=== PATIENT | male | born 1985 | race Hispanic/Latino ===

== ENCOUNTER 2020-08-02 06:57 | Emergency (ER) | payer OTHER ==
--- NOTE | 2020-08-02 07:12 | Emergency Department Report ---
ED General Adult HPI - General Chief complaint: Medical Clearance Stated complaint: ANXIETY/HIGH HEARTRATE PUI?: No Time Seen by Provider: 08/02/20 07:11 Source: patient, EMS (Verbal report received from emergency medical services. EMS documentation not available at time of chart dictation ), RN notes reviewed, old records reviewed Mode of arrival: Stretcher Limitations: Other (Patient somewhat hyper latter day) - History of Present Illness Initial comments: The patient was evaluated in the emergency department for symptoms described in the history of present illness. He/she was evaluated in the context of the global COVID-19 pandemic, which necessitated consideration that the patient might be at risk for infection with the virus that causes COVID-19. Institutional protocols and algorithms that pertain to the evaluation of patients at risk for COVID-19 are in a state of rapid change based on information released by regulatory bodies including the CDC and federal and state organizations. These policies and algorithms were followed during the patient's care in the emergency department. Please note that these policies, procedures and recommendations changed on a rapid basis. The patient is a 34-year-old gentleman. He is not known to myself previously. He was reportedly diagnosed with Covid in [place] in the beginning of the month. He also has a history of infantile pneumothorax on his right-hand side. The patient is currently at [facility], on a voluntary basis. He was originally transferred there on a 1013 because of hyper latter day behavior, bizarre behavior, and mutism. His psychiatrist of record, Dr. Alfaro, has placed the patient on a voluntary basis. The patient is sent to the emergency room for asymptomatic tachycardia. As per verbal report from emergency medical services, patient was found to have heart rate at 170 bpm approximately 12:00 AM today. It is not known why referral to the emergency room took a prolonged period of time. EMS states the patient had heart rate in the 1 teens/120s. The patient himself states "everything is explained on my art work." The patient states he has right-sided chest tightness. He denies headache, neck pain, left-sided chest pain, vomiting, shortness of breath, leg pain, leg swelling, homicidality, suicidality, he denies muscle aches, loss of taste and loss of smell. The patient endorses that he is not experiencing any hallucinations. The patient states "Rustam is my Savior, everything comes through him." The patient also states "if you look at my art work and drawings, it will explain everything." To the best of patient's knowledge, no personal or family history of DVT, pulmonary embolism, or coronary artery disease. He states his tachycardia is mostly resolved, he feels like he is very anxious, and he does not have right-sided chest tightness at this time. -: Sudden Location: chest Radiation: non-radiation Consistency: now resolved Improves with: none Worsens with: none Associated Symptoms: denies other symptoms - Related Data Allergies Allergy/AdvReac Type Severity Reaction Status Date / Time codeine Allergy Rash Verified 08/02/20 07:35 ED Review of Systems ROS: Stated complaint: ANXIETY/HIGH HEARTRATE Other details as noted in HPI Constitutional: denies: fever Eyes: denies: eye discharge Respiratory: denies: cough Cardiovascular: palpitations Gastrointestinal: denies: abdominal pain Genitourinary: denies: dysuria Musculoskeletal: denies: back pain Neurological: as per HPI. denies: weakness Psychiatric: anxiety. denies: auditory hallucinations, visual hallucinations, homicidal thoughts, suicidal thoughts ED Physical Exam - General Limitations: Other (Patient somewhat anxious, minimally disorganized) General appearance: alert, anxious - Head Head exam: Present: atraumatic, normocephalic - Eye Eye exam: Present: normal appearance, EOMI. Absent: nystagmus - ENT ENT exam: Present: normal exam, normal orophraynx, mucous membranes moist, normal external ear exam - Neck Neck exam: Present: normal inspection, full ROM. Absent: tenderness, m eningismus - Respiratory Respiratory exam: Present: normal lung sounds bilaterally, other (There is a right-sided scar, appears chronic, consistent with prior history of pneumothorax). Absent: respiratory distress, wheezes, rales, rhonchi, stridor - Cardiovascular Cardiovascular Exam: Present: normal rhythm, tachycardia, normal heart sounds. Absent: bradycardia, irregular rhythm, systolic murmur, diastolic murmur, rubs, gallop - GI/Abdominal GI/Abdominal exam: Present: soft, normal bowel sounds. Absent: distended, tenderness, guarding, rebound, rigid, pulsatile mass - Rectal Rectal exam: Present: deferred - Extremities Exam Extremities exam: Present: normal inspection, full ROM, other (2+ pulses noted in the bilateral upper and lower extremities. There is no palpable cord. negative Homans sign. Muscular compartments are soft. The pelvis is stable.). Absent: pedal edema, calf tenderness - Back Exam Back exam: Present: normal inspection. Absent: tenderness, CVA tenderness (R), CVA tenderness (L), paraspinal tenderness, vertebral tenderness - Neurological Exam Neurological exam: Present: alert, oriented X3, other (No facial droop. Tongue midline. Extraocular movements intact bilaterally. Facial sensation intact to light touch in V1, V2, V3 distribution bilaterally. 5 and a 5 strength in 4 extremities. Sensation intact to light touch in 4 extremities.). Absent: motor sensory deficit - Psychiatric Psychiatric exam: Present: anxious. Absent: homicidal ideation, suicidal ideation - Skin Skin exam: Present: warm, dry, intact, normal color. Absent: rash ED Course Vital Signs 08/02/20 08/02/20 08/02/20 07:20 10:02 10:07 Temperature 97.9 F 98.6 F Pulse Rate 111 H 105 H Respiratory 17 19 Rate Blood Pressure 132/81 Blood Pressure 125/68 [Left] O2 Sat by Pulse 97 98 Oximetry O2 Sat by Pulse 98 Oximetry [ Digit-Finger] 08/02/20 10:55 Temperature Pulse Rate 100 H Respiratory 14 Rate Blood Pressure Blood Pressure 142/81 [Left] O2 Sat by Pulse 100 Oximetry O2 Sat by Pulse Oximetry [ Digit-Finger] - Reevaluation(s) Reevaluation #1: 08/02/20 07:30 Differential diagnosis, including the not limited to: Anxiety, pneumothorax, pneumonia, thyroid derangement, pulmonary embolism Assessment and plan: 34-year-old gentleman, who is hyper latter day, but alert and oriented x3, and clinically sober, who was taken off of his 1013 by his psychiatry team recently, who has somewhat of a bizarre affect and anxiety, but is pleasant, calm and cooperative, and does not endorse desire to harm herself or harm other people. He recently had COVID-19 at the beginning of the month. Given nonspecific description of right-sided chest discomfort and tachycardia, we will send D-dimer, in addition to appropriate laboratory studies to risk for pulmonary embolism. We will start IV fluids, and give Ativan. Medications include metoprolol, Risperdal, clonidine, haloperidol, Benadryl. They also include trazodone. We will reassess after initial data points have resulted. Assuming negative troponin which we anticipate, patient at low risk for major adverse cardiac event as per heart score Reevaluation #2: 08/02/20 08:38 Laboratory studies fairly unremarkable at this time, D-dimer elevated. Given history of Covid, tachycardia, right-sided chest discomfort, CT scan of the chest will be obtained to exclude pulmonary embolism. Psychiatry liaison who is reached out to [facility], who have requested a repeat psychiatric evaluation for potential intake. Therefore, psychiatric consultation is requested, additional laboratory studies, such as urinalysis, have been ordered, as per typical requirements of the psychiatric team. 08/02/20 10:[address] scan of the chest shows no evidence of large significant pulmonary embolism. We appreciate that the patient's CT angiogram has a suboptimal contrast bolus. However, his tachycardia is much improved, he is not hypoxic, and he is not tachypneic. Therefore, I think it is very unlikely that the patient has a subsubsegmental, or subsegmental pulmonary embolism. At this point in time, patient does not appear to have an immediate medical contraindication to psychiatric admission, evaluation, consultation and placement. - Pulse Oximetry Interpretation Digit-Finger Initial Pulse Oximetry Readin O2 Sat by Pulse Oximetry: 98 Actions Taken: none ED Medical Decision Making - Lab Data Result diagrams: 08/02/20 07:46 08/02/20 07:46 Vital Signs 08/02/20 08/02/20 07:20 07:38 Temperature 97.9 F Pulse Rate 111 H Respiratory 17 Rate Blood Pressure 132/81 O2 Sat by Pulse 97 Oximetry O2 Sat by Pulse 98 Oximetry [ Digit-Finger] Lab Results 08/02/20 08/02/20 08/02/20 Range/Units 07:46 07:46 07:46 WBC 7.9 (4.5-11.0) K/mm3 RBC 4.60 (3.65-5.03) M/mm3 Hgb 14.7 (11.8-15.2) gm/dl Hct 41.4 (35.5-45.6) % MCV 90 (84-94) fl MCH 32 (28-32) pg MCHC 36 H (32-34) % RDW 12.8 L (13.2-15.2) % Plt Count 213 (140-440) K/mm3 PT 13.9 (12.2-14.9) Sec. INR 1.08 (0.87-1.13) D-Dimer 297.02 H (0-234) ng/mlDDU Sodium (137-145) mmol/L Potassium (3.6-5.0) mmol/L Chloride (98-107) mmol/L Carbon Dioxide (22-30) mmol/L Anion Gap mmol/L BUN (9-20) mg/dL Creatinine (0.8-1.3) mg/dL Estimated GFR ml/min BUN/Creatinine Ratio % Glucose (75-100) mg/dL Calcium (8.4-10.2) mg/dL Magnesium (1.7-2.3) mg/dL Total Bilirubin (0.1-1.2) mg/dL AST (5-40) units/L ALT (7-56) units/L Alkaline Phosphatase (35-129) units/L Total Creatine Kinase (55-170) units/L Troponin T < 0.010 (0.00-0.029) ng/mL Total Protein (6.3-8.2) g/dL Albumin (3.9-5) g/dL Albumin/Globulin Ratio % Salicylates (2.8-20.0) mg/dL Acetaminophen (10.0-30.0) ug/mL Plasma/Serum Alcohol (0-0.07) % 08/02/20 08/02/20 08/02/20 Range/Units 07:46 07:46 07:46 WBC (4.5-11.0) K/mm3 RBC (3.65-5.03) M/mm3 Hgb (11.8-15.2) gm/dl Hct (35.5-45.6) % MCV (84-94) fl MCH (28-32) pg MCHC (32-34) % RDW (13.2-15.2) % Plt Count (140-440) K/mm3 PT (12.2-14.9) Sec. INR (0.87-1.13) D-Dimer (0-234) ng/mlDDU Sodium 138 (137-145) mmol/L Potassium 3.6 (3.6-5.0) mmol/L Chloride 107.7 H (98-107) mmol/L Carbon Dioxide 23 (22-30) mmol/L Anion Gap 11 mmol/L BUN 13 (9-20) mg/dL Creatinine 0.7 L (0.8-1.3) mg/dL Estimated GFR > 60 ml/min BUN/Creatinine Ratio 19 % Glucose 101 H (75-100) mg/dL Calcium 8.5 (8.4-10.2) mg/dL Magnesium 2.00 (1.7-2.3) mg/dL Total Bilirubin 0.70 (0.1-1.2) mg/dL AST 16 (5-40) units/L ALT 27 (7-56) units/L Alkaline Phosphatase 61 (35-129) units/L Total Creatine Kinase 166 (55-170) units/L Troponin T (0.00-0.029) ng/mL Total Protein 6.9 (6.3-8.2) g/dL Albumin 4.4 (3.9-5) g/dL Albumin/Globulin Ratio 1.8 % Salicylates < 0.3 L (2.8-20.0) mg/dL Acetaminophen 5.0 L (10.0-30.0) ug/mL Plasma/Serum Alcohol (0-0.07) % 08/02/20 Range/Units 07:46 WBC (4.5-11.0) K/mm3 RBC (3.65-5.03) M/mm3 Hgb (11.8-15.2) gm/dl Hct (35.5-45.6) % MCV (84-94) fl MCH (28-32) pg MCHC (32-34) % RDW (13.2-15.2) % Plt Count (140-440) K/mm3 PT (12.2-14.9) Sec. INR (0.87-1.13) D-Dimer (0-234) ng/mlDDU Sodium (137-145) mmol/L Potassium (3.6-5.0) mmol/L Chloride (98-107) mmol/L Carbon Dioxide (22-30) mmol/L Anion Gap mmol/L BUN (9-20) mg/dL Creatinine (0.8-1.3) mg/dL Estimated GFR ml/min BUN/Creatinine Ratio % Glucose (75-100) mg/dL Calcium (8.4-10.2) mg/dL Magnesium (1.7-2.3) mg/dL Total Bilirubin (0.1-1.2) mg/dL AST (5-40) units/L ALT (7-56) units/L Alkaline Phosphatase (35-129) units/L Total Creatine Kinase (55-170) units/L Troponin T (0.00-0.029) ng/mL Total Protein (6.3-8.2) g/dL Albumin (3.9-5) g/dL Albumin/Globulin Ratio % Salicylates (2.8-20.0) mg/dL Acetaminophen (10.0-30.0) ug/mL Plasma/Serum Alcohol < 0.01 (0-0.07) % - EKG Data -: EKG Interpreted by Me EKG shows normal: sinus rhythm Rate: tachycardia - EKG Data When compared to previous EKG there are: previous EKG unavailable 08/02/20 07:31 Sinus rhythm, tachycardia rate 109 bpm, normal axis, QTC 468 ms, poor R wave progression, incomplete right bundle branch block. Not a STEMI - Radiology Data Radiology results: pending, report reviewed, image reviewed X-ray of the chest is negative for acute finding Critical care attestation.: If time is entered above; I have spent that time in minutes in the direct care of this critically ill patient, excluding procedure time. ED Disposition Clinical Impression: Right-sided chest pain, History of COVID-19, Medical clearance for psychiatric admission, Bizarre thoughts Disposition: [id number]/TX-65 PSY HOSP/PSY UNIT Is pt being admited?: No Does the pt Need Aspirin: No Condition: Good Instructions: Chest Pain (ED) Additional Instructions: Do not take metformin medication for the next 2 days. Recommend follow-up with a primary medical doctor or burlesque dancer for complaint of chest tightness and tachycardia within the next 3 days. At this point in time, patient does not appear to have an immediate medical contraindication to discharge back to his psychiatric facility. Recommend repeat psychiatric evaluation within the next 2 days for bizarre behavior and thought processes. Please return to the emergency room right away with new pain, worsening pain, migration of pain, projectile vomiting, change in mental status, confusion, mee bility to tolerate liquid feeds, new, worsened or different symptoms not present on the initial emergency room evaluation. Referrals: [facility] [Provider Group] - 3-5 Days Heart Score - HEART Score History: Slightly suspicious EKG: Non-specific Age: < 45 Risk factors: No known risk factors Troponin: < normal limit HEART Score: 1 - Critical Actions Critical Actions: 0-3 pts:0.9-1.7%risk of adverse cardiac event.Candidate for discharge
[2020-08-02] MEDS ORDERED: SODIUM CHLORIDE 0.9% 1000 ML 1,000 ML IV ONE (07:23)
[2020-08-02] MEDS ORDERED: LORazepam 2 MG/ML VIAL IV STA (07:23)
[2020-08-02 08:05] LABS: Hematocrit 41.4 % (35.5-45.6); Hemoglobin 14.7 gm/dl (11.8-15.2); Mean Corpuscular HGB Conc 36 % (32-34); Mean Corpuscular Volume 90 fl (84-94); Platelet Count 213 K/mm3 (140-440); Red Cell Distribution Width 12.8 % (13.2-15.2)
[2020-08-02 08:16] LABS: INR 1.08 (0.87-1.13)
--- NOTE | 2020-08-02 08:19 | XRay Report ---
XR chest 1V ap INDICATION / CLINICAL INFORMATION: tachycardia, right sided cp. COMPARISON: None available. FINDINGS: SUPPORT DEVICES: None. HEART /PULMONARY VASCULATURE: No significant abnormality. LUNGS / PLEURA: No significant pulmonary or pleural abnormality. No pneumothorax. ADDITIONAL FINDINGS: No significant additional findings. IMPRESSION: 1. No acute findings. Signer Name: Isrrael Jones MD Signed: 08/02/2020 8:15 AM Workstation Name: [id number]
--- NOTE | 2020-08-02 08:23 | Consultation ---
History of Present Illness - Reason for Consult Consult date: 08/02/20 Reason for consult: MHE Requesting physician: PIERRE HEBERT - History of Present Psychiatric Illness Per ED Provider: The patient is a 34-year-old gentleman. He is not known to myself previously. He was reportedly diagnosed with Covid in [place] in the beginning of the month. He also has a history of infantile pneumothorax on his right-hand side. The patient is currently at [facility], on a voluntary basis. He was originally transferred there on a 1013 because of hyper worship behavior, bizarre behavior, and mutism. His psychiatrist of record, Dr. Alfaro, has placed the patient on a voluntary basis. The patient is sent to the emergency room for asymptomatic tachycardia. As per verbal report from emergency medical services, patient was found to have heart rate at 170 bpm approximately 12:00 AM today. It is not known why referral to the emergency room took a prolonged period of time. EMS states the patient had heart rate in the 1 teens/120s. The patient himself states "everything is explained on my art work." The patient states he has right-sided chest tightness. He denies headache, neck pain, left-sided chest pain, vomiting, shortness of breath, leg pain, leg swelling, homicidality, suicidality, he denies muscle aches, loss of taste and loss of smell. The patient endorses that he is not experiencing any hallucinations. The patient states "Rustam is my Savior, everything comes through him." The patient also states "if you look at my art work and drawings, it will explain everything." PSYCH HPI Patient is a 34 year old , employed male with past psychiatric history of unspecified psychiatric disorder who presents to the ED from another psychiatric facility for acute medical management and recommending re-evaluation to determine continuous psych needs. Patient states he has been experience more exposure to nondenominational and jennifer has been talking to him. Patient states he believes a new light is shinning on him and other people dont understand that. He denies hallucinations, stating because he is on medications now he does not hear any and then proceed to showing drawings he had made that depicted a lost soul. PAST PSYCHIATRIC HISTORY Diagnoses: n/a Suicide attempts or Self-harm behavior: none Prior psychiatric hospitalizations: yes Substance Abuse history: none reported Previous psychiatric medications tried: yes but unknown Outpatient treatment: none reported PAST MEDICAL HISTORY: none Family Psychiatric History: None reported or documented SOCIAL HISTORY Marital Status: Living Arrangements: with Employment Status: employed Access to guns/weapons: none reported [place] [employer] [place] of Abuse: none Legal History: none REVIEW OF SYSTEMS Constitutional: Negative for weight loss ENT: Negative for stridor Respiratory: Negative for cough or hemoptysis All other systems reviewed and are negative MENTAL STATUS EXAMINATION General Appearance and Behavior: Age appropriate, poor/fair/good hygiene, wearing appropriate clothes, lying in bed, good/eye contact Cooperation: Participating/engaged, Psychomotor Behavior: unremarkable and within normal limits Mood: Good, Affect and affective range: congruent with mood Thought Process: illogical Loose associations Thought Content: Obsessions, Speech: Normal volume, Regular rate and rhythm, Intellectual Functioning: Average Suicidal Ideation: Denies SI Homicidal Ideation: Denies HI Impulse Control: Impaired Insight and Judgment: Normal insight and judgment Memory: Normal, d Attention: Normal, Orientation: Alert, oriented, Assessment and Plan - Psychiatric problem (1) Bipolar 1 disorder with moderate damon Status: Acute F31.12 Treatment Plan MEDICATIONS: Risks, benefits and alternatives of medications discussed with the patient, questions answered and consent obtained from patient. PSYCHOTHERAPY: Supportive psychotherapy provided MEDICAL: Per primary team DELIRIUM PRECAUTIONS: Please re-orient patient frequently, keep lights on during the day, and minimize benzodiazepines and opiates as these medications could worsen patient's confusion. 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 Case discussed with Dr. Sosa who agrees with current disposition LEGAL STATUS: 1013 FOLLOW-UP: Will follow Thank you for the consult. Please contact with any questions and/or concerns. Medications and Allergies Allergies Allergy/AdvReac Type Severity Reaction Status Date / Time codeine Allergy Rash Verified 08/02/20 07:35 Active Meds: Active Medications Sodium Chloride (Nacl 0.9% 1000 Ml) 1,000 mls @ 999 mls/hr IV BOLUS ONE Stop: 08/02/20 08:23 Last Admin: 08/02/20 07:35 Dose: 999 mls/hr Documented by: Mental Status Exam - Vital signs Last Vital Signs Temp 97.9 F 08/02/20 07:20 Pulse 111 H 08/02/20 07:20 Resp 17 08/02/20 07:20 BP 132/81 08/02/20 07:20 Pulse Ox 98 08/02/20 07:38 Results Result Diagrams: 08/02/20 07:46 08/02/20 07:46 Abnormal lab results 08/02/20 08/02/20 Range/Units 07:46 07:46 MCHC 36 H (32-34) % RDW 12.8 L (13.2-15.2) % D-Dimer 297.02 H (0-234) ng/mlDDU All other labs normal. Assessment and Plan - Psychiatric problem (1) Bipolar 1 disorder with moderate damon Status: Acute
[2020-08-02 08:32] LABS: Alanine Aminotransferase 27 units/L (7-56); Albumin 4.4 g/dL (3.9-5); Blood Urea Nitrogen 13 mg/dL (9-20); Calcium 8.5 mg/dL (8.4-10.2); Hemolysis Index 5
[2020-08-02 08:37] LABS: BUN/Creatinine Ratio 19
--- NOTE | 2020-08-02 09:22 | Cat Scan Report ---
CT angio chest INDICATION / CLINICAL INFORMATION: cp, + d dimer, tachycardia. TECHNIQUE: Axial CT images were obtained after injection of IV contrast using CTA protocol. 3 plane MIP / 3D rec onstructions were produced. All CT scans at this location are performed using CT dose reduction for A DOMINGUEZ by means of automated exposure control. COMPARISON: None available. FINDINGS: Following the administration of intravenous contrast, a suboptimal bolus was obtained. No definite fi lling defects are seen in the main pulmonary arteries or their larger branches. No significant parenc hymal abnormality is seen in the lungs. No enlarged mediastinal or hilar lymph nodes are identified. Mild thoracolumbar scoliosis is present. IMPRESSION: 1. Suboptimal bolus without definite evidence of pulmonary embolus 2. No acute findings 3. Mild thoracolumbar scoliosis Signer Name: Luther Prieto MD FACR Signed: 08/02/2020 9:18 AM Workstation Name: [id number]
[2020-08-02] MEDS ORDERED: METOPROLOL TARTRATE 50 MG TAB PO ONE (10:07)
[2020-08-02 10:51] LABS: Bilirubin,Urine NEG (Negative); Blood,Urine NEG (Negative); Color,Urine Yellow (Yellow); Mucus,Urine FEW /HPF; Protein,Urine <15 mg/dL mg/dL (Negative); RBC,Urine < 1.0 /HPF (0.0-6.0); WBC,Urine < 1.0 /HPF (0.0-6.0)
[2020-08-02 11:06] LABS: Amphetamine Screen,Urine Negative; Benzodiazepines Screen,Urine Negative; Cannabinoid Screen,Urine Negative; Cocaine Screen,Urine Negative; Methadone Screen,Urine Negative; Opiate Screen,Urine Negative
[2020-08-02 13:22] VITALS: BP 145/80
== END 2020-08-02 13:22 ==
LOC: ED 06:57
DX: R07.89 Other chest pain (principal); R46.1 Bizarre personal appearance; Z86.16 Personal history of COVID-19; Z04.6 Encounter for general psychiatric examination, requested by authority
CPT/HCPCS: 36415; 71045; 71275; 80053; 80307; 81001; 82550; 83735; 84443; 84484; 85027; 85379; 85610; 93005; 96361; 96374; 99285; J2060; J7030; Q9967; 80320; G0480